=== PATIENT | female | born 1980 | race Caucasian/White ===

== ENCOUNTER 2021-01-18 13:29 | Emergency (ER) | payer MEDICARE, OTHER | END 2021-01-18 14:40 | disposition left against medical advice (07) | LOC: JP.ED 13:29 | DX: Z53.21 Procedure and treatment not carried out due to patient leaving prior to being seen by health care provider (principal) ==

== ENCOUNTER 2021-03-29 09:49 | Emergency (ER) | payer MEDICARE, MEDICAID ==
[2021-03-29] MEDS ORDERED: Albuterol/Ipratropium 3.0-0.5 MG/3 ML Neb Soln NEB ONE (10:18)
--- NOTE | 2021-03-29 10:20 | EDM.PDOC ---
ED HPI GENERAL MEDICAL PROBLEM - General Chief Complaint: Respiratory Problem Stated Complaint: BRONCHITIS Time Seen by Provider: 03/29/21 10:14 Source of Information: Reports: Patient, RN Notes Reviewed History Limitations: Reports: No Limitations - History of Present Illness INITIAL COMMENTS - FREE TEXT/NARRATIVE: 41-year-old female presents emergency department day complaint of cough and shortness of breath, she states she has had symptoms for about 3 days she had symptoms similar about 3 weeks ago did do a 7-day course of doxycycline. She has not had any fevers no body aches has been vaccinated for Covid x2 - Related Data Allergies Allergy/AdvReac Type Severity Reaction Status Date / Time amoxicillin Allergy Hives Verified 03/29/21 09:59 cefuroxime [From Ceftin] Allergy Hives Verified 03/29/21 09:59 Sulfa (Sulfonamide Allergy Hives Verified 03/29/21 09:59 Antibiotics) Home Meds: Home Meds ARIPiprazole [Abilify Mycite] 1 tab PO DAILY 03/29/21 [History] Albuterol Sulfate [Albuterol Sulfate Hfa] 18 gm IH QID #1 hfa.aer.ad 03/29/21 [Rx] Benzonatate [Tessalon Perle] 100 mg PO BID PRN #30 capsule 03/29/21 [Rx] Melatonin 1 tab PO BEDTIME 03/29/21 [History] Omeprazole 1 tab PO DAILY 03/29/21 [History] valACYclovir HCl [Valtrex] 1 tab PO DAILY 03/29/21 [History] Past Medical History Psychiatric History: Reports: Bipolar - Past Surgical History Female Surgical History: Reports: Section Social & Family History - Tobacco Use Tobacco Use Status *Q: Current Every Day Tobacco User Years of Tobacco use: 20 Packs/Tins Daily: 0.5 ED ROS GENERAL - Review of Systems Review Of Systems: See Below Constitutional: Denies: Fever, Chills HEENT: Reports: No Symptoms Respiratory: Reports: Shortness of Breath, Wheezing, Cough, Sputum Cardiovascular: Reports: No Symptoms GI/Abdominal: Reports: No Symptoms ED EXAM, GENERAL - Physical Exam Exam: See Below Exam Limited By: No Limitations General Appearance: Alert, WD/WN, No Apparent Distress Respiratory/Chest: No Respiratory Distress, Lungs Clear, Normal Breath Sounds, No Accessory Muscle Use, Chest Non-Tender Cardiovascular: Regular Rate, Rhythm, No Murmur GI/Abdominal: Soft, Non-Tender Course - Vital Signs Last Recorded V/S: Last Vital Signs Temp 96.6 F L 03/29/21 10:08 Pulse 98 03/29/21 10:08 Resp 14 03/29/21 10:08 BP 138/93 H 03/29/21 10:08 Pulse Ox 98 03/29/21 10:08 - Orders/Labs/Meds Orders: Active Orders 24 hr Category Date Time Status RT Aerosol Therapy [RC] ASDIRECTED Care 03/29/21 10:18 Active Chest 2V [CR] Stat Exams 03/29/21 10:53 Taken Labs: Laboratory Tests 03/29/21 03/29/21 03/29/21 Range/Units 10:53 11:10 11:10 WBC 11.1 H (4.5-11.0) K/uL RBC 4.55 (3.30-5.50) M/uL Hgb 14.0 (12.0-15.0) g/dL Hct 41.0 (36.0-48.0) % MCV 90 (80-98) fL MCH 31 (27-31) pg MCHC 34 (32-36) % Plt Count 249 (150-400) K/uL Add Manual Diff Yes Neutrophils % (Manual) 65 (36-66) % Band Neutrophils % 1 L (5-11) % Lymphocytes % (Manual) 20 L (24-44) % Monocytes % (Manual) 6 (2-6) % Eosinophils % (Manual) 3 (2-4) % Basophils % (Manual) 2 H (0-1) % Blast Cells % 3 % Sodium (140-148) mmol/L Potassium (3.6-5.2) mmol/L Chloride (100-108) mmol/L Carbon Dioxide (21-32) mmol/L Anion Gap (5.0-14.0) mmol/L BUN (7-18) mg/dL Creatinine (0.6-1.0) mg/dL Est Cr Clr Drug Dosing mL/min Estimated GFR (MDRD) (>60) Glucose (74-106) mg/dL Lactic Acid 3.2 H (0.4-2.0) mmol/L Calcium (8.5-10.1) mg/dL Procalcitonin < 0.05 ng/mL SARS CoV-2 RNA Rapid YOU 03/29/21 03/29/21 Range/Units 11:10 11:19 WBC (4.5-11.0) K/uL RBC (3.30-5.50) M/uL Hgb (12.0-15.0) g/dL Hct (36.0-48.0) % MCV (80-98) fL MCH (27-31) pg MCHC (32-36) % Plt Count (150-400) K/uL Add Manual Diff Neutrophils % (Manual) (36-66) % Band Neutrophils % (5-11) % Lymphocytes % (Manual) (24-44) % Monocytes % (Manual) (2-6) % Eosinophils % (Manual) (2-4) % Basophils % (Manual) (0-1) % Blast Cells % % Sodium 140 (140-148) mmol/L Potassium 3.8 (3.6-5.2) mmol/L Chloride 103 (100-108) mmol/L Carbon Dioxide 25 (21-32) mmol/L Anion Gap 12.1 (5.0-14.0) mmol/L BUN 13 (7-18) mg/dL Creatinine 1.2 H (0.6-1.0) mg/dL Est Cr Clr Drug Dosing 65.37 mL/min Estimated GFR (MDRD) 49 L (>60) Glucose 202 H (74-106) mg/dL Lactic Acid (0.4-2.0) mmol/L Calcium 8.7 (8.5-10.1) mg/dL Procalcitonin ng/mL SARS CoV-2 RNA Rapid YOU Negative Meds: Medications Discontinued Medications Generic Name Dose Route Start Last Admin Trade Name Freq PRN Reason Stop Dose Admin Albuterol/Ipratropium 3 ml 03/29/21 10:18 03/29/21 10:23 Albuterol/Ipratropium 3.0-0.5 Mg/3 Ml Neb Soln NEB 03/29/21 10:19 3 ml ONETIME ONE Administration Departure - Departure Time of Disposition: 12:05 Disposition: Home, Self-Care 01 Condition: Fair Clinical Impression: Acute bronchiolitis Qualifiers: Bronchiolitis organism: other organism Qualified Code(s): J21.8 - Acute bronchiolitis due to other specified organisms - Discharge Information Prescriptions: Albuterol Sulfate [Albuterol Sulfate Hfa] 18 gm IH QID #1 hfa.aer.ad Benzonatate [Tessalon Perle] 100 mg PO BID PRN #30 capsule PRN Reason: Cough Instructions: Acute Bronchitis, Adult, [id number] Referrals: PCP,None [Primary Care Provider] - Forms: ED Department Discharge Additional Instructions: Try the albuterol inhaler as needed for shortness of breath symptoms, try the Tessalon Perles as needed help suppress the cough, please followup with your primary care provider in 3-5 days if not better, please call return to the emergency department with worsening of symptoms. Sepsis Event Note (ED) - Evaluation Sepsis Screening Result: No Definite Risk - Focused Exam Vital Signs: Vital Signs Temp Pulse Resp BP Pulse Ox 03/29/21 10:08 96.6 F L 98 14 138/93 H 98 - My Orders Last 24 Hours: My Active Orders 03/29/21 10:18 RT Aerosol Therapy [RC] ASDIRECTED 03/29/21 10:53 Chest 2V [CR] Stat - Assessment/Plan Last 24 Hours: My Active Orders 03/29/21 10:18 RT Aerosol Therapy [RC] ASDIRECTED 03/29/21 10:53 Chest 2V [CR] Stat Plan: Assessment Acuity = acute Site and laterality = bronchitis Etiology = unknown Manifestations = cough Location of injury = Home Lab values = CBC CMP unremarkable creatinine slightly elevated at 1.2 consistent with T3a chronic renal failure, lactic acid elevated 3.5 consistent with lactic acidosis, chest x-ray I did review films myself I cannot appreciate any acute process, the official read from radiology is pending, Covid was negative Plan I did review lab work chest x-ray results with her she is going to try an albuterol inhaler at home as well as Tessalon Perles and and follow-up primary care in 3 to 5 days if no improvement, I was resistant to provide her with antibiotics as she just recently completed the course of doxycycline and has only been ill for 3 days This note was dictated using [email or web address] voice recognition software please call with any questions on syntax or grammar.
--- NOTE | 2021-03-30 09:39 | CR ---
CHEST: 2 view CLINICAL HISTORY:Cough COMPARISON:None FINDINGS: The heart size, pulmonary vascularity and hilar structures are normal. No infiltrate effusion or pneumothorax is seen. IMPRESSION: No acute cardiopulmonary process.
== END 2021-03-29 12:16 | disposition home or self-care (01) ==
LOC: JP.ED 09:49
DX: J21.9 Acute bronchiolitis, unspecified (principal); Z88.2 Allergy status to sulfonamides; Z88.0 Allergy status to penicillin; Z88.1 Allergy status to other antibiotic agents; Z72.0 Tobacco use; Z20.822 Contact with and (suspected) exposure to COVID-19
CPT/HCPCS: 36415; 71046; 80048; 83605; 84145; 85025; 94640; 99284; U0002; J7620-GY